=== PATIENT | female | born 1995 ===

== ENCOUNTER 2022-02-09 14:45 | Outpatient (CLI) | payer MEDICAID, SELFPAY | END 2022-02-09 14:46 | disposition home or self-care (01) | LOC: NFLDREF 02-10 09:49 | PROVIDERS: Visit Provider Obstetrics & Gynecology | DX: Z34.93 Encounter for supervision of normal pregnancy, unspecified, third trimester (principal); Z3A.30 30 weeks gestation of pregnancy | CPT/HCPCS: 87086 ==

== ENCOUNTER 2022-02-19 18:29 | Outpatient (CLI) | payer MEDICAID, SELFPAY ==
[2022-02-20 18:37] LABS: Rapid Plasma Reagin (RPR) Non Reactive (Non Reactive)
== END 2022-02-19 18:30 | disposition home or self-care (01) ==
PROVIDERS: Visit Provider Obstetrics & Gynecology
DX: Z34.93 Encounter for supervision of normal pregnancy, unspecified, third trimester (principal); Z3A.30 30 weeks gestation of pregnancy
CPT/HCPCS: 86592

== ENCOUNTER 2022-03-18 13:30 | Outpatient (CLI) | payer MEDICAID, SELFPAY ==
[2022-03-18 19:45] LABS: Chlamydia DNA Amplified* NOT DETECTED (No Detected); GC DNA Amplified* NOT DETECTED (No Detected)
== END 2022-03-18 13:31 | disposition home or self-care (01) ==
PROVIDERS: Visit Provider Obstetrics & Gynecology
DX: N39.0 Urinary tract infection, site not specified (principal); R30.0 Dysuria
CPT/HCPCS: 87086; 87491; 87591

== ENCOUNTER 2022-03-29 16:07 | Outpatient (CLI) | payer MEDICAID, SELFPAY ==
[2022-03-29 15:46] VITALS: BP 103/73; PULSE 116; RESP 20; TEMP 36.8; O2SAT 97; BMI 46.1
[2022-03-29 16:16] VITALS: PULSE 132; O2SAT 97
[2022-03-29 16:21] VITALS: PULSE 119; O2SAT 97
[2022-03-29 16:29] VITALS: BP 114/61; PULSE 111; TEMP 37.2
--- NOTE | 2022-03-29 18:07 | PC.OBNST ---
NST Note NST Note Start: 03/29/22 16:10 Freq: ONCE Status: Active Protocol: Document 03/29/22 18:05 AM (Rec: 03/29/22 18:06 AM [id number]) NST Note 3 Para (# of births) 1 EDC 04/26/22 Gestational Age In Weeks & Days 36 Weeks & 0 Days Patient Presented with Complaint(s) of Decreased movement Reactive Yes Appropriate for Gestational Age Yes RN Monika RNC Date 03/29/22 Reactive Yes Appropriate for Gestational Age Yes ROYAL Guevara Date 03/29/22 OB NST charge Yes Complete NST Note via Write Note Yes The provider's electronic signature indicates the NST is reactive/appropriate for gestational age. *Note to provider: If an addendum is required, open the patient's chart and click on the note under the Nurse/Allied Health tab.
== END 2022-03-29 17:20 | disposition home or self-care (01) ==
LOC: OB OUT 16:08 → OB 16:11
DX: O99.213 Obesity complicating pregnancy, third trimester (principal); Z3A.37 37 weeks gestation of pregnancy
CPT/HCPCS: 59025; 99213

== ENCOUNTER 2022-04-02 13:50 | Outpatient (CLI) | payer MEDICAID, SELFPAY ==
--- NOTE | 2022-04-02 14:00 | CRLHL7_ITS ---
For Patients: As a result of the Century Cures Act, medical imaging exams and procedure reports are released immediately into your electronic medical record. You may view this report before your referring provider. If you have questions, please contact your health care provider. INDICATION: OBESITY AFFECTING TECHNIQUE: Real time arroyo scale imaging of the fetus was performed. COMPARISON: None FINDINGS: Sonographic imaging demonstrates a single living intrauterine gestation. Fetus demonstrates a regular cardiac rate of 128 beats per minute. Fetus has a vertex position. The placenta lies posteriorly. Amniotic fluid volume appears normal and there is a single deepest pocket of 5.3 cm. The estimated weight is 3800gm which lies at the greater than 97th %. BPD 61st percentile. HC 55th percentile. AC greater than 97th percentile. FL 17th percentile. HC/AC ratio 0.88 (0.90-1.05). The fetus was active and demonstrated normal breathing movements. There was normal flexion and extension of the trunk and extremities. IMPRESSION: Normal biophysical profile score 8/8. Sonographic gestational age 37 weeks 6 days and sonographic due date 04/17/2022. Sonographic age 9 days ahead of the clinical age. Estimated weight greater than 97th percentile. Abdominal circumference greater than 97th percentile. Dictated by Jordan Mcfadden MD @ 04/02/2022 3:38:10 PM (Electronically Signed)
== END 2022-04-02 13:51 | disposition home or self-care (01) ==
LOC: US 13:51
PROVIDERS: Visit Provider Obstetrics & Gynecology
DX: O99.213 Obesity complicating pregnancy, third trimester (principal); Z68.41 Body mass index [BMI] 40.0-44.9, adult; Z3A.37 37 weeks gestation of pregnancy
CPT/HCPCS: 76816; 76819

== ENCOUNTER 2022-04-02 16:01 | Outpatient (CLI) | payer MEDICAID, SELFPAY ==
[2022-04-03 14:27] LABS: Strep B DNA Probe POSITIVE (Negative)
[2022-04-03 14:28] LABS: Strep B Pen/Amox Allergy No
== END 2022-04-02 16:02 | disposition home or self-care (01) ==
PROVIDERS: Visit Provider Obstetrics & Gynecology
DX: Z34.93 Encounter for supervision of normal pregnancy, unspecified, third trimester (principal); Z3A.36 36 weeks gestation of pregnancy
CPT/HCPCS: 87081; 87653

== ENCOUNTER 2022-04-18 05:14 | Inpatient (IN) | payer MEDICAID, SELFPAY ==
[2022-04-18] VITALS (22 sets, daily range): BP systolic 90–124; BP diastolic 51–77; PULSE 67–102; RESP 15–18; TEMP 36.6–38.2; O2SAT 96–100; BMI 47.3
[2022-04-18 05:48] LABS: Basophils Absolute Auto 0.03 K/uL (0.00-0.30); Basophils Percent Auto 0.4 % (0.0-3.0); Eosinophils Absolute Auto 0.09 K/uL (0.00-0.50); Eosinophils Percent Auto 1.1 % (0.0-7.0); Hematocrit 34.2 % (33.0-51.0); Hemoglobin* 11.2 gm/dL (12.0-16.0); Immature Granulocytes Abs Auto 0.12 K/uL (0.00-0.30); Immature Granulocytes Pct Auto 1.5 %; Lymphocytes Absolute Auto 1.96 K/uL (0.90-2.90); Lymphocytes Percent Auto 24.9 % (20-44); Mean Corpuscular HGB Conc 33 gm/dL (32-36); Mean Corpuscular Hemoglobin 27 pg (26-34); Mean Corpuscular Volume 82 fL (80-100); Neutrophils Absolute Auto 5.12 K/uL (1.7-7.0); Neutrophils Percent Auto 65.1 % (42.0-72.0); Platelet Count* 312 K/uL (140-440); RDW Coefficient of Variation % 16.2 % (11.5-15.5); Red Blood Count 4.19 m/uL (4.00-5.20); White Blood Count* 7.87 K/uL (4.50-11.00)
[2022-04-18 05:54] LABS: Slide Review Reflex No
[2022-04-18] MEDS: LACTATED RINGERS 1000 ML 1,000 ML 125 ML IV ×2 (06:15→18:52)
[2022-04-18] MEDS: AMPICILLIN 2 GM in 0.9 % SODIUM CHLORIDE Mini-bag 100 ML IVPB (06:15)
[2022-04-18 07:02] LABS: SARS PCR* Negative SARS-CoV-2 (Negative)
--- NOTE | 2022-04-18 10:31 | P.OBHP_ITS ---
OB - H&P: HPI Labor/Induction History of Present Illness Time Seen by Provider: 10:31 Date Seen: 04/18/22 Chief Complaint: Spontaneous rupture of membranes and contractions. Chief complaint: Maternity Narrative: HPI: Sabine is a 26-year-old 3 para 1011 at 38 weeks 6 days gestation with an RODERICK of 04/26/22. She is being admitted for SROM and spontaneous onset of labor. She was seen in the clinic earlier this afternoon and her cervix was found to be 6-7 cm dilated. Her membranes were intact. GBS negative. Her complete history and physical was completed by Dr. Sandra Pollard on 04/07/22 please see that note for complete details. OB PROBLEM LIST: . RODERICK: 04/26/22 by 1st trimester US Partner (since 2013): Jordan. Daughter: Becca. Baby: Boy! 1. 08/10/2020 primary LTCS for arrest of dilation, Dr. Cortes. Girl. 11#1oz * Double-layer uterine closure * Patient desires TOLAC * Consent form reviewed and given to the patient on 02/01/2022 * Likelihood of successful : 29.6% * US for EFW and BPP at 36 weeks: * IOL w oxytocin at 39 weeks * WANTS REPEAT CS SCHEDULED ON 04/19/22: Changed her mind on 04/18/2022 when she was admitted. * TOLAC consent form reviewed and signed with Bryanna Caballero MD on 04/18/2022 2. H/O PCOS 3. Initial BMI 42.4 * Hgb A1C: 5.2% * 1hr GTT 02/01/22:Completed, normal * Start weekly testing at 36 weeks: 4. Mild persistent asthma: albuterol MDI prn 5. H/O depression, no medication currently * 02/01/22: PHQ-9: 4. SALAS -7: 0 Transfer of care from [facility] on 02/01/22 labs: 09/04/21 Blood type O+, antibody screen negative HgbA1C: 5.2% Hemoglobin: 12.4 Platelets: 433 K Hepatitis C antibody: Negative Hepatitis B surface antigen: Negative HIV: Nonreactive RPR: Nonreactive Urine culture: Mixed Gram-positive tru Pap smear: Normal. Next due 2024 Imaging: US for FAS 11/30/21: SLIUP, post low lying placenta 1cm from os. Single echogenic focus in the heart. EFW 97%. Left anechoic adnexal cyst: 6.4 x 5.1 x 4.0 cm. 12/07/2021 maternity 21: No increased risk for chromosome abnormality. Male sex. F/U USN for growth and placental location 12/31/21: Post placenta > 2cm from the os. SDP = 5.9cm. EFW: 791gm = 97%. COVID: not vaccinated, declines. Flu: not vaccinated, declines TDap: 02/19/22 OBJECTIVE: Vital signs per medical record. Heart: Regular rate and rhythm without gallop, rub or murmur. Chest: Clear to auscultation bilaterally without wheezes, rales or rhonchi. Abdomen: Gravid and nontender. Normal bowel sounds throughout. EFM: Baseline 140's, (positive) accels, (negative) decels, moderate variability. Reactive Category 1. TOCO: Q 2 minutes. SVE per nursing on admission: 2.5 cm/50 %/-2/soft/mid. [place] score: 6 Extremities: No pain, edema or cyanosis. ASSESSMENT: 26-year-old 3 para 1001 at 38 weeks 6 days gestation admitted for TOLAC, status post spontaneous rupture of membranes and spontaneous onset of labor. PLAN: 1. The patient desires nothing for analgesia in labor. 2. GBS positive: Receiving ampicillin for prophylaxis. 3. Expect vaginal delivery. 4. TOLAC consent form reviewed and signed. Meds Home Medications and Allergies Home Medications Medication Instructions Recorded Confirmed Type calcium carbonate 200 mg calcium 200 mg PO BID PRN 02/01/22 04/14/22 History (500 mg) chewable tablet (Tums) prenat.vits,steve,dun-pogj-rpwjn 1 tab PO QDAY 02/01/22 04/14/22 History evening primrose oil 500 mg capsule 500 mg PO DAILY 03/29/22 04/14/22 History Allergies Allergy/AdvReac Type Severity Reaction Status Date / Time No Known Allergies Allergy Verified 04/14/22 13:47 OB - H&P: Exam Physical Exam: Vital signs: Pulse BP 77 119/59 L 04/18/22 09:27 04/18/22 09:27 OB - Results Labs Labs: Short CBC 04/18/22 Range/Units 05:42 WBC 7.87 (4.50-11.00) K/uL Hgb 11.2 L (12.0-16.0) gm/dL Hct 34.2 (33.0-51.0) % Plt Count 312 (140-440) K/uL
[2022-04-18] MEDS: AMPICILLIN 1 GM in 0.9 % SODIUM CHLORIDE Mini-bag 100 ML IVPB ×2 (10:57→15:15)
--- NOTE | 2022-04-18 11:56 | PM.OBPNL ---
Subjective Time Seen by Provider: 11:56 Date Seen: 04/18/22 Narrative: The patient is very painful with contractions describing her pain 12/16. No Pitocin. She has gotten 1 dose of IV ampicillin for GBS prophylaxis. I reviewed the TOLAC consent form with her and her partner, Jordan, she had her questions answered and the consent form signed. Risks associated with /TOLAC are due to uterine rupture = the scar on the uterus breaking oper. Chance of uterine rupture 0.07%. If uterine rupture occurs: 50% of women require blood products due to internal bleeding, 25% require hysterectomy to control hemorrhaging, 3-4% of neonates have long-term neurologic problems (cerebral palsy) placental abruption at the time of uterine rupture resulting in lack of oxygenation, less than 1% or maternal mortality. Vital signs: Per electronic medical record. EFM: Baseline 130s, multiple accelerations, no decelerations, moderate variability, reactive. Category 1. [place]: Contractions every 1-5 minutes. SVE: 6 cm/80 %/-1. Assessment: 26-year-old 2 para 1 at 38 weeks 6 days gestation TOLAC. Plan: 1. Continue ampicillin every 4 hours for GBS prophylaxis 2. Wants to labor without medical intervention. 3. Operating room staff will be notified that the patient is in active labor. Objective Vital Signs: Last Vital Signs Temp 98.2 F 04/18/22 10:30 Pulse 77 04/18/22 09:27 Resp 16 04/18/22 10:30 BP 119/59 L 04/18/22 09:27
--- NOTE | 2022-04-18 15:31 | P.OBPN_ITS ---
Subjective Time Seen by Provider: 15:00 Date Seen: 04/18/22 Narrative: Subjective: The patient is mildly uncomfortable with contractions. States that the contractions are much less painful than they were prior to getting fentanyl. Discussed placing an IUPC and scalp electrode to see how strong the contractions are and closely monitor the baby's heart rate. She gave verbal consent to have these placed. Vital signs: Per electronic medical record. EFM: Baseline 130s, positive accelerations, negative decelerations, moderate variability, reactive. Category 1. scalp electrode placed without difficulty. [place]: Contractions every 5-10 minutes. IUPC placed. [place] units <50/10min for > 30 minutes. SVE: 6 cm/80 %/-1. Unchanged since noon. Assessment: 26-year-old 2 para 1 at 38 weeks 6 days gestation, inadequate labor. Plan: 1. Start Pitocin per induction protocol. 2. Status post ampicillin: 2 doses for GBS positive status. Objective Vital Signs: Last Vital Signs Temp 98.6 F 04/18/22 13:49 Pulse 80 04/18/22 15:19 Resp 18 04/18/22 13:49 BP 119/59 L 04/18/22 15:19
[2022-04-18] MEDS: OXYTOCIN 30 unit/500 ML in NS 30 UNIT/500 ML BAG IVPB (15:37)
--- NOTE | 2022-04-18 18:35 | P.OBPN_ITS ---
Subjective Time Seen by Provider: 18:15 Date Seen: 04/18/22 Narrative: Subjective: Uncomfortable with contractions requesting an epidural. Discussed that if she has not needed any progress which she want to hold off on epidural and do her repeat or get an epidural in continue to try to do Pitocin to progress to a . She states that she would like to go to repeat if she has not made any progress.. Pitocin: 7 milliunits/minute. Vital signs: Per electronic medical record. EFM: Baseline 130, pots accelerations, no decelerations, mA variability, react. Category 1. IUPC: Contractions every 3-6 minutes. [place] units: 28-35/10min SVE: 6 cm/8 %/-1. No change in dilation or progress in station since noon today: Greater than 6 hours. Assessment: 26-year-old 2 para 1 at 38 weeks 6 days gestation arrest of dilation, unsuccessful augmentation of labor Plan: 1. Pitocin stopped. 2. Consent form for repeat low-transverse section reviewed and signed. 3. Planning to proceed to repeat when the operating room is able. Objective Vital Signs: Last Vital Signs Temp 98.5 F 04/18/22 16:50 Pulse 90 04/18/22 16:50 Resp 18 04/18/22 13:49 BP 119/57 L 04/18/22 16:50
--- NOTE | 2022-04-18 18:38 | PM.PROC ---
Procedure Note Time Seen by Provider: 18:39 Date Seen: 04/18/22 Date of procedure: 04/18/22 Will [facility] bill your pro fee for this procedure?: Yes Procedure: Preoperative diagnosis: 26-year-old 2 para 1001 at 38 and 6/7 weeks. Spontaneous rupture membranes at 3:00 a.m. today status post 3 doses of IV ampicillin for GBS prophylaxis. Arrest of dilation/unsuccessful augmentation of labor with dilation arrested at 6 cm. Postoperative diagnosis: Same Procedure: Repeat low-transverse section/CED/left ovarian cystectomy. Anesthesia: Spinal, TAPS block Surgeon: Bryanna Caballero MD Manager Multimedia: Not applicable Quantitative blood loss: 893 mL IVF: 1300 mL UOP: 100 mL clear urine at the end of the procedure Drain(s): [place] to gravity. Specimen: Left ovarian cyst wall Findings: A live male infant was delivered from the LOT position at 7:52 p.m.. Apgars were 8 at 1 min and 9 at 5 min respectively. Infant weight: 4895 g, 10 lb 13 oz. Nuchal cord(s): No. The placenta was delivered spontaneously and complete at 7:55 p.m. Amniotic fluid: Clear. Normal uterus, and fallopian tubes. Thick adhesions of the omentum to the fascia and peritoneum that were lysed on entry into the abdomen. 5 cm left ovarian cyst. Thin adhesions of the left adnexa to the left pelvic sidewall. Procedure: Mirelia was taken to the OR where spinal anesthetic was found be adequate. A [place]thing[place] catheter was placed. The patient was then placed in the dorsal supine position with a leftward tilt. She was then prepped and draped in a normal sterile manner. A Pfannenstiel skin incision was made and carried through sharply to the underlying layer of fascia. Fascia was incised in the midline and this incision carried laterally with Grady scissors. The superior aspect of fascial incision was grasped with Kady clamps, tented up, and the rectus muscles dissected off with bipolar cautery dissection.. The inferior aspect of the fascial incision was grasped with Kady clamps, tented up and again the rectus muscles dissected off with bipolar cautery dissection. The rectus muscles were in the midline, layers taken down sharply with the Grady scissors. There were thick adhesions of the omentum to the fascia. Multiple pedicles were formed in the omentum, doubly clamped with Irais clamps, divided and suture ligated with 3-0 Vicryl free ties. The peritoneum was entered bluntly and this opening extended with a combination of sharp and blunt dissection. This opening was extended bluntly. An Yuval-O self-retaining retractor was placed. A few adhesions of the bladder today anterior lower uterine segment were removed but a bladder flap was not created. Uterus was incised in a low transverse manner in the midline. This incision carried laterally with blunt pressure on the inferior and superior aspects of the uterine incision. The infant's head and body were delivered atraumatically. The infant was shown to the patient and her support person. The umbilical was clamped and cut immediately/after a 30-60 second delay. The was then handed to waiting pediatric and nursing staff. The placenta was delivered spontaneously. The uterus was cleared of clots and debris. There was uterine atony noted which was treated with multiple medications: 1 g IV TXA, 30 units Pitocin in 1 L lactated Ringer's wide open, Methergine 0.2 mg IM x1, Cytotec 800 mg rectally. The uterine incision was re-approximated with the uterus in vivo. The 1st layer using 0-Vicryl in a running, locked manner. The 2nd layer using 0-Monocryl in a running, vertical, imbricating layer. Additional sutures needed for hemostasis: Yes: 4 figure of 8 sutures using 2-0 chromic. The ovaries were then inspected and the left ovarian cyst was identified. The patient gave verbal consent to have the ovarian cyst removed. Some of the thin adhesions of the left adnexa to the left pelvic sidewall were taken down bluntly. The ovary was incised at the inferior aspect of the cyst using bipolar cautery. The normal ovarian tissue was grasped with a Irais clamp and ovarian cyst wall was grasped with a 2nd Irais clamp. The ovarian cyst wall was removed from the overlying normal ovarian tissue with blunt pressure. Bipolar cautery was used to obtain hemostasis. Attention was return to the uterine incision and Saniya was applied. Excellent hemostasis was confirmed. The Yuval retractor was removed. The rectus muscles were not reapproximated. The peritoneum was reapproximated using 3 0 Vicryl in a running manner. The rectus muscles were then closely inspected to verify hemostasis. Hemostasis was obtained with bipolar cautery. The fascia was then reapproximated using 0-Maxon loop in a running manner. The subcutaneous tissue was then irrigated with saline and hemostasis obtained with bipolar cautery. The subcutaneous tissue was reapproximated using 3-0 plain gut in a combination of interrupted and running sutures. The skin was reapproximated using 4-0 Monocryl in a running subcuticular manner. Steri-Strips and a silver-containing methaplex dressing were applied. The patient tolerated this procedure well. Sponge, lap and instrument counts were correct x2 active to the procedure. Patient was taken to the recovery area in stable condition. The patient received 3 g of IV Ancef prior to skin incision. After delivery she received: 1 g IV TXA, 30 units Pitocin in 1 L lactated Ringer's wide open, Methergine 0.2 mg IM x1, Cytotec 800 mg rectally. Surgeon: Bryanna Caballero MD
[2022-04-18] MEDS: CEFAZOLIN 1 GM inj 3 GM IVP (19:15)
--- NOTE | 2022-04-18 19:54 | SUR.OPER ---
SURGEON DECLINED TO SEND PLACENTA TO PATHOLOGY
[2022-04-18] MEDS: miSOPROStoL 800 MCG/4 TABLET PR (19:57)
--- NOTE | 2022-04-18 22:00 | W.ANESCHARGE ---
Anesthesia Charges Start Date/Time Anesthesia Start Date: 04/18/22 Anesthesia Start Time: 19:08 Stop Date/Time Anesthesia Stop Date: 04/18/22 Anesthesia Stop Time: 21:39 Summary Emergency: Yes
--- NOTE | 2022-04-18 22:01 | W.PM.NB ---
Nerve Block Nerve Block Time Seen by Provider: 22:01 Date Seen: 04/18/22 Type of block requested by surgeon for post-operative analgesia: TAP Side: bilateral Time out performed: Yes Verification of patient name: Yes Verification of date of : Yes Site marking: site marked Name of person performing procedure: Moreno Johny Continuous monitoring Was continuous monitoring of O2 sat, B/P, laboratory monitor, recorded every 15 minutes?: Yes Procedure Checklist: sterile prep, needles and gloves Ultrasound guided. Images saved: Yes Medications given in 5ml increments after negative aspiration: Marcaine %: 0.25 mL: 30 and Exparel mL: 10 Patient tolerated procedure well: Yes Block Charges Block Charge (with Pro Fee): TAP Bilateral Use of Ultrasound Machine for Block: Yes- US Guidance/pain block
[2022-04-19] VITALS (24 sets, daily range): BP systolic 104–123; BP diastolic 53–72; PULSE 68–83; RESP 16–18; TEMP 36.8–37.7; O2SAT 95–100
[2022-04-19] MEDS: KETOROLAC 30 MG/ML inj IVP ×4 (03:13→21:02)
[2022-04-19 06:32] LABS: Hemoglobin* 9.5 gm/dL (12.0-16.0)
--- NOTE | 2022-04-19 08:29 | P.OBPN_ITS ---
OB - PN: A/P Assessment and Plan (1) Lactating mother: Status: Acute (2) Status post repeat low transverse section: Problem details: Arrest of dilation, LOT, Male, 10#13oz. Apgars 8/9. Status: Acute Plan 26 year old on day 1.? 1. cares.? 2. Anticipate discharge today or tomorrow. Plan day: 1 Plan: routine postop care OB - PN: Subj Subjective Date Seen: 04/19/22 Patient comments: no complaints, pain well controlled and tolerating diet status: and doing well [place] feeding status: exclusively Narrative: The patient feels well.? The pain is well controlled with current medications.? She has no new complaints.? Urinary output is adequate and she is voiding without difficulty.? Has a good appetite, is tolerating a general diet, and is not yet passing flatus.? Has?small amount of rubra lochia.? She has ambulated once and felt that it went well.?She would like to discharge today after 24 hours if possible. She is anxious to get home to her young child whom she is still . I will round on her again this evening and evaluate for discharge. OB - PN: Obj Exam Physical Exam: Vital signs: Temp Pulse Resp BP Pulse Ox O2 Del Method 99.8 F H 83 16 106/71 96 04/19/22 03:23 04/19/22 03:23 04/19/22 05:15 04/19/22 03:23 04/19/22 03:23 04/19/22 03:23 Narrative: GENERAL APPEARANCE:? normal affect, alert, no distress? MOOD:? appropriate? CHEST:? clear to auscultation and percussion? HEART:? regular rate and rhythm? ABDOMEN:? soft, tender to palpation, the uterine fundus is?U/2 and is appropriate for the stage of recovery.?Incision covered and dressing is clean dry and intact. PERINEUM:? no edema of the perineum.? EXTREMITIES:? normal and no edema? ? Urinary Catheter Management: Urethral: Cath placed during this visit: yes, but has since been removed by the nurse Reason for continuing: decision to DC catheter Removal date: 04/19/22 Removal time: 03:45 OB - PN: Obj Data Labs Labs: Laboratory Results - last 24 hr 04/19/22 05:55 Hgb 9.5 L
[2022-04-19] MEDS: FERROUS SULFATE 325 MG TABLET PO (08:55)
[2022-04-19] MEDS: DOCUSATE SODIUM 100 MG CAPSULE PO (08:55)
--- NOTE | 2022-04-19 12:29 | PM.OBPNL ---
Subjective Time Seen by Provider: 11:00 Date Seen: 04/19/22 Narrative: I went to examine the patient and to possibly place her second dose of cytotec. Patient is very anxious about the induction plan. She states that she doesn't feel comfortable with the risk of Objective Vital Signs: Last Vital Signs Temp 98.2 F 04/19/22 08:45 Pulse 81 04/19/22 08:45 Resp 18 04/19/22 08:45 BP 123/70 04/19/22 08:45 Pulse Ox 95 04/19/22 08:45 O2 Del Method 04/19/22 08:45 Assessment Amniotic Membrane Status: SROM
[2022-04-20 00:44] VITALS: BP 103/70; PULSE 76; RESP 16; TEMP 36.6; O2SAT 97
[2022-04-20] MEDS: ACETAMINOPHEN 500 MG TABLET 1000 MG PO ×2 (00:53→11:11)
[2022-04-20] MEDS: KETOROLAC 30 MG/ML inj IVP (02:58)
--- NOTE | 2022-04-20 08:32 | PM.OBDSCS1 ---
DS: Providers Provider Time Seen by Provider: 08:33 Date Seen: 04/20/22 Date of admission: 04/18/22 05:14 Primary care physician: Penny Maurer MD Admitting Clinician: Bryanna Caballero MD Attending Physician on discharge: Lou Kim CNM Date of Discharge: 04/20/22 DS: Diagnosis Discharge Diagnosis (1) Status post repeat low transverse section: Status: Acute Problem details: Arrest of dilation, LOT, Male, 10#13oz. Apgars 8/9. (2) Lactating mother: Status: Acute (3) Acute anemia: Status: Acute Exam Const: Vital Signs, click to edit/add: Vital Signs - 24 hr 04/19/22 08:45 04/19/22 13:00 04/19/22 12:08 Temperature 98.2 F 98.6 F Pulse Rate [Pulse Oximeter] 81 83 Respiratory Rate 18 16 16 Blood Pressure [Le ft Arm] 123/70 105/70 Pulse Oximetry 95 96 Oxygen Delivery Me thod Room Air Room Air 04/19/22 13:08 04/19/22 14:08 04/19/22 15:08 Temperature Pulse Rate [Pulse Oximeter] Respiratory Rate 16 16 16 Blood Pressure [Le ft Arm] Pulse Oximetry Oxygen Delivery Me thod 04/19/22 16:08 04/19/22 17:08 04/19/22 18:04 Temperature Pulse Rate [Pulse Oximeter] Respiratory Rate 16 16 16 Blood Pressure [Le ft Arm] Pulse Oximetry Oxygen Delivery Me thod 04/19/22 16:00 04/20/22 00:44 04/19/22 19:30 Temperature 98.2 F 97.9 F Pulse Rate [Pulse Oximeter] 76 Respiratory Rate 16 16 16 Blood Pressure [Le ft Arm] 123/72 103/70 Pulse Oximetry 95 97 Oxygen Delivery Me thod Room Air Room Air 04/19/22 20:30 04/19/22 21:30 Temperature Pulse Rate [Pulse Oximeter] Respiratory Rate 16 16 Blood Pressure [Le ft Arm] Pulse Oximetry Oxygen Delivery Me thod Documenting provider has reviewed patient's vital signs: yes Common normals: no apparent distress, oriented x3, healthy appearing, alert and well nourished General appearance: cooperative, well kempt and well developed Orientation/consciousness: Yes awake, Yes oriented to person, Yes oriented to place and Yes oriented to time HENMT: Common normals: normocephalic and external nose normal Head and scalp: normocephalic Nose: external nose normal Eye: General eye: normal appearance of both eyes Neck & C-Spine: Common normals: full ROM and supple General: normal visual inspection Cervical spine: cervical ROM normal Chest: Common normals: inspection of chest normal and palpation of chest normal Resp: Common normals: normal respiratory effort, no retractions, no use of accessory muscles and clear to auscultation bilaterally Effort & inspection: able to speak in complete sentences and symmetric chest movement Auscultation: clear to auscultation bilaterally Cardio: Common normals: regular rate and regular rhythm Rate: regular rate Rhythm: regular rhythm GI: Common normals: Normal to inspection, nondistended, normoactive bowel sounds present and soft to palpation Inspection: normal to inspection and other (Incision well approximated, no bleeding or discharge. Dressing [dry]) Auscultation: normoactive bowel sounds Palpation: soft and tender : Common normals: external appearance normal Uterus: 2/U and firm Lochia: small Uterus palpation: uterus tender Back & Pelvis: Thoracic spine/upper back: thoracic ROM normal Lumbar spine/lower back: lumbar ROM normal Extremity: Common normals: full ROM General: normal exam except as noted and edema ([place], +1) Neuro: Common normals: oriented x3 Sensorium/orientation: awake, alert, oriented to person, oriented to place and oriented to time Speech: speech normal Psych: Common normals: mental status grossly normal, thought process normal and speech normal Appearance: grossly normal and well kempt Attitude: calm and engaged Activity/motor behavior: appropriate eye contact Speech: normal speech Thought process: normal thought process Thought content: normal thought content Attention/concentration: attention grossly intact Memory/cognition: memory grossly intact Insight: insight good Judgement: judgment good Skin: Common normals: no rashes or lesions noted Narrative: LTC Incision: Dressed, dry, no drainage or bleeding General skin exam: no rashes or lesions noted OB - DS: Summary Hospital Course Hospital Course: Sabine is a 26 year old G 3 P 2 at 39 2/7 weeks gestation that was admitted to the Center on 04/18/22 for SROM. She had an uncomplicated delivery after areest of dilation with an attempted TOLAC. She delivered a viable male . She is breast feeding. the patient has done well. Peripartum Data Procedures: Procedures Operation Date: 04/18/22 19:15 Actual Procedure Side Surgeon p Section, left ovarian cystectomy, lysis of adhesions Bryanna Caballero MD complications: none [place] Gender: Male Infant Discharge Plan: Home Status at Discharge Functional status at discharge: independent ambulation Overall status at discharge: patient is progressing back to baseline Time Spent with Patient Time attestation: Total time spent providing and/or coordinating discharge services: Time spent: Less than 30 minutes Discharge Plan Discharge Disposition: Home, Self-Care Date of Admission: 04/18/22 05:14 Attending Provider on Discharge: Yuliya Kim Primary Care Provider: Penny Maurer Condition: Stable Anticipated Discharge Date/Time: 04/20/22 08:42 Discharge Medications: New docusate sodium 100 mg Capsule 100 mg PO BID PRN (Reason: constipation) Qty: 100 1RF ibuprofen 600 mg Tablet 600 mg PO Q6H PRN (Reason: Pain) Qty: 60 0RF oxycodone 5 mg Tablet 5 - 10 mg PO Q4H PRN (Reason: Pain) Qty: 20 0RF Continued prenat.vits,steve,[id number] Tablet 1 tab PO QDAY calcium carbonate [Tums] 200 mg calcium (500 mg) tablet,chewable 200 mg PO BID PRN ferrous sulfate 325 mg (65 mg iron) tablet 325 mg PO QDAY Qty: 60 0RF Discontinued evening primrose oil 500 mg capsule 500 mg PO DAILY Rx Instructions: give with meal/snack Discharge Orders: Discharge Order (Routine); Ordered 04/20/22 Ordered By: Yuliya Kim Patient Education: OB Over the Counter Medication Information, OB /Breast Feeding Additional Instructions: Follow up in 2 weeks & 6 weeks Activity Level: Activity as Tolerated Discharge Diet: Regular Follow Up Appointments: Penny Maurer MD [Primary Care Provider] - Forms: [employer] Info Instructions
[2022-04-20 08:45] VITALS: BP 102/71; PULSE 74; RESP 16; TEMP 36.6; O2SAT 97
== END 2022-04-20 12:45 | disposition home or self-care (01) | DRG 787 ==
LOC: OB OUT 05:14 → OB 05:14
PROVIDERS: Admitting Provider Obstetrics & Gynecology; PCP Obstetrics & Gynecology; Visit Provider Obstetrics & Gynecology
PROC: 10D00Z1 Extraction of Products of Conception, Low, Open Approach (ICD-10-PCS; CPT 59514; principal; 2022-04-18 19:00)
DX: O34.211 Maternal care for low transverse scar from previous cesarean delivery (principal); D62 Acute posthemorrhagic anemia; O66.41 Failed attempted vaginal birth after previous cesarean delivery; O99.824 Streptococcus B carrier state complicating childbirth; O62.0 Primary inadequate contractions; O34.83 Maternal care for other abnormalities of pelvic organs, third trimester; N83.292 Other ovarian cyst, left side; O90.81 Anemia of the puerperium; Z3A.38 38 weeks gestation of pregnancy; Z37.0 Single live birth
CPT/HCPCS: 01961; 36415; 51798; 64488; 76942; 85018; 85025; 86850; 86900; 86901; 87635; 88307; 99140; A9270; C9290; J0290; J0690; J1100; J1200; J1885; J2210; J2274; J2370; J2405; J2590; J3010; J3490; J7120

== ENCOUNTER 2022-07-05 14:06 | Outpatient (CLI) | payer MEDICAID, SELFPAY | END 2022-07-05 14:07 | disposition home or self-care (01) | LOC: NFLDREF 14:09 | PROVIDERS: Visit Provider Advanced Practice Midwife | DX: Z39.2 Encounter for routine postpartum follow-up (principal) | CPT/HCPCS: 84702 ==

== ENCOUNTER 2022-11-30 15:05 | Outpatient (CLI) | payer MEDICAID, SELFPAY ==
[2022-11-30 20:18] LABS: Chlamydia DNA Amplified* NOT DETECTED (No Detected); GC DNA Amplified* NOT DETECTED (No Detected)
== END 2022-11-30 15:06 | disposition home or self-care (01) ==
PROVIDERS: Visit Provider Obstetrics & Gynecology
DX: R10.2 Pelvic and perineal pain (principal)
CPT/HCPCS: 87086; 87491; 87591

== ENCOUNTER 2022-11-30 15:08 | Outpatient (CLI) | payer MEDICAID, SELFPAY ==
--- NOTE | 2022-11-30 15:00 | CRLHL7_ITS ---
For Patients: As a result of the Century Cures Act, medical imaging exams and procedure reports are released immediately into your electronic medical record. You may view this report before your referring provider. If you have questions, please contact your health care provider. CLINICAL HISTORY: Left lower quadrant pain TECHNIQUE: 2D arroyo scale ultrasound. In addition color Doppler and spectral Doppler analysis was performed of the pelvis using a transabdominal and transvaginal approach. FINDINGS: The myometrium has a normal uniform echotexture. The uterus measures 8.4 x 3.8 x 4.6 cm. The endometrial lining appears normal and measures 4.6 mm in thickness. The right ovary measures 3.8 x 2.3 x 3.4 cm in size and the left ovary measures 3.8 x 1.9 x 2.4 cm. The ovaries demonstrate normal arterial and venous blood flow on color Doppler and spectral Doppler analysis. There are no suspicious fluid collections within the cul-de-sac. IMPRESSION: Normal pelvic ultrasound. Normal ovaries. No adnexal mass or excess pelvic free fluid. No ovarian torsion. Dictated by Jordan Mcfadden MD @ 12/01/2022 9:00:17 AM (Electronically Signed)
== END 2022-11-30 15:09 | disposition home or self-care (01) ==
LOC: US 15:09
PROVIDERS: Visit Provider Obstetrics & Gynecology
DX: R10.32 Left lower quadrant pain (principal)
CPT/HCPCS: 76830; 76856; 93976

== ENCOUNTER 2023-04-13 14:30 | Outpatient (RCR) | payer MEDICAID, SELFPAY ==
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
--- NOTE | 2023-04-13 15:51 | PT.OPDNX ---
PT [facility] Outpatient Daily Note PT [facility] Outpatient Daily Note Start: 01/19/23 14:35 Freq: Status: Active Protocol: Document 04/13/23 14:28 ARR (Rec: 04/13/23 15:47 ARR [email or web address]) E-signed By Myrna Bell DPT PT [facility] Daily Progress Note Visit Information Note Type Daily Note,Recert/Progress Note Visit Number [id number] Insurance Information Recert Due Date 07/12/23 Insurance Name Medicaid,[facility] Insurance Information/Comments Eval: 01/19 - 04/13 (8 visits) Recert 04/14-06/12/23 POC x 8 visits MEDICAID Medical Diagnosis R10.2 pelvic and perineal pain Treating Diagnosis R10.30 Lower abdominal pain, unspecified R10.2 Pelvic and perineal pain N39.3 Stress incontinence M54.16 lumbar radiculopathy Referring MD Penny Maurer MD ([facility]) Subjective Subjective -Nearly 20 min late -Back has been fine. Noting upper back pain likely from VB -Urinary leakage -notices it during the day and especially in the AM. After holding the kids, doing heavy lifting will leak. At times will also leak and not know she leaked. Occurs daily. Will have to change underwear daily - started wearing liners and must change liners 3+ times per day. -Daytime voiding every 2-3 hours. No urgency. Preferred Name [facility] Home Exercise Home Exercise Comments OTHER: -Diary -PF check in's handout 04/13 -Bladder health 01/26 -BM positioning 01/26 -CS massage 01/26 Access Code: [email or web address] URL: [email or web address] Date: 01/26/2023 Prepared by: Myrna Bell Exercises - Transverse Abdominis Activation - 1 x daily - 4-5 x weekly - 2 sets - 6-8 reps Objective Other/Pertinent Objective Transvaginal 04/13 -Good squeeze and lift of PFM with contraction. Reduced relaxation of PFM with rest. TTP throughout layers 1-3 with TTP and increased tone. INTERNAL EXAMINATION INTRAVAGINAL 01/26: -Sensation: intact to touch -Observation: WNL -Perineum: normal -Cough: nil -Lifting contraction: Anal wink minimal clitoral nod -Bulge: bulge Tenderness/pain to palpation/ tone: -Layer 1: ischiocavernosus / bulbospongiousus / superficial transverse perineal on left Strength ( R / C / L): -Power (MMT): 2 -Endurance: 6 -Reps:4 -Fast twitch: 8 -Relaxation of PFM after quick contractions: delayed *poor squeeze strength Other: -Breathing examination: dec?d posterior and lateral ribcage mvmt with inhalation EXTERNAL OBJECTIVE 01/19/23: -Movement screen: --MS flexion fingertips to floor with inc'd HS flexibility reduced TS and LS *increased leg/back pain. --LS extension hinging at L4-5 . No changes in LBP or back pain. --MS extension reduced TS. -SLS: significant foot pronation each side with instability and pelvic drop. able to hold 20-30 sec. L more unstable than R with inc'd foot pronation. -Posture: navicular drop with increased foot pronation bilaterally. IC on R elevated 1 thumbwidth. Inc'd APT -Hip PROM: IR 60 R / 40L. ER 70 R, 60 L. Flexion and ext WNL -Strength: glut medius 2+ bilat Other Tests: -Coordination: gripping with upper abs during attempts at TA activation -Breathing: dec?d posterior and lateral ribcage mvmt with inhalation -Myofascial palpation: Decreased connective tissue mobility with skin rolling at lower abdominal areas. Increased tissue sensitivity with TTP over tissue of scar -DR: <1/2 depth and 2 fingers at umbilicus and above umbilicus / <1/2 depth and 1 fingers above umbilicus Special tests: -Flexibility: + piriformis. Patient Instructed in Risks/Benefits Yes Therapeutic Exercise Therapeutic Exercise Minutes (minutes) 45 Therapeutic Exercise: To Restore TE: Indicated for improvement Functional Status in strengthening and mobility. -Handouts with written instructions and photographs of exercises were issued to the patient for exercises to be included in HEP. Answered patient questions regarding POC, and mobility/stretches to perform if pain occurs -Transvaginal assessment as above transvaginal with consent: -Deep breathing x 8 breaths -PFC with full relaxation x 8 reps -PFTA with exhale x 8 reps Education:: -PF letting go with check in's 4-5x/day - STOP clenching your pelvic floor and glut/buttock muscles . Shake it out and let the muscles go - After exercising do happy baby position or child?s pose and take 8-10 deep breaths - EXHALE lifting pelvic floor and engaging lower abdominals as you oyster picker something heavy / kids - Take 1-5 minutes DAILY for deep breathing and relaxing pelvic floor (before you go to bed or 1st thing in the AM when you get up). Treatment Minutes Timed Code Treatment Minutes 45 Total Treatment Time 45 Billing Units Therapeutic Exercise Units 3 Assessment/Impression Assessment/Impression Reassessment of PFM this date noting improved PFC with greater squeeze and lift compared to initial evaluation . But also noting increased TTP and tone - this is consistent with pt's subjective report of feeling as if she is clenching/ tightening PF more often due to fear of leaking in addition to pt's habit of glut clenching with increased stress. WIth attempts at TA activation note excessive PFC compared to TA activation. Pt' s increase in urinary leakage likely secondary to hypertonic PFM and clenching/holding patterns. Pt to also increase awareness of any bearing down with deep squats/holding kids vs lifting from bottom up. Pt' s next visit is May 2023 due to scheduling conflicts. Pt to contact PT sooner with any questions or concerns. Is on waitlist for cancellations 10th visit note: Pt has been seen for lower abdominal pain, lumbar radiculopathy, low back pain, pelvic pain s/p delivery for 8 visits from to 04/13/23 during this episode of physical therapy. Focus of therapy on spinal ROM /stretching, proximal strengthening of core and gluts, and body mechanics. Interventions including ther exercise, self-care, manual therapy, neuromuscular re- education. Pt has not yet met all short and joint terminal attack controller goals and would benefit from continued skilled physical therapy. Maximal therapeutic benefit has also not yet been reached as pt has had reduced back pain but persistent urinary leakage. Thus, PT to benefit from extension of current plan of care with timeframe of goals adjusted to allow for additional visits. Skilled PT is indicated to continue at a frequency of 1x/ wk for an additional 8 visits. Continued skilled PT to continue working on proximal strengthening of core/gluts, PFM strengthening, pressure mgmt to reduce instances of incontinence, and promoting improved bladder/bowel health. Pt agreeable with continued skilled therapy and goals. Plan of Care Physical Therapy Goals STG (within 4 visits - total of 8 visits) 1) Pt will demonstrate proper coordination of motor recruitment patterns for PF then TA activation during isometric activation while maintaining diaphragmatic breathing pattern 2)Pt will recall at least 4 strategies to improve pressure management in order to reduce instances of incontinence outside PT sessions 3) Pt will report reduced urinary leakage episodes no more than 2 per day for improved health of vaginal tissues LTG (within 8 visits - total of 16) 1) Pt will demonstrate proper coordination of motor recruitment patterns for PF then TA activation during dynamic UE/LE movements in all postures while maintaining diaphragmatic breathing pattern 2)Pt will demonstrate ability to complete at least 10 quick contractions of PFM with full relaxation between reps in order to reduce incontinence with increases in IAP 3) Pt will demonstrate improved PFM contraction of at least 3 on Laycock scale 4) Pt will report reduced urinary leakage episodes no more than 2x per week for improved health of vaginal tissues 5)Pt will report absent urinary leakage with cough, sneeze, jump. 6) Pt will report ability to return to exercise with pain not exceeding 2/10 for improved quality of life. Daily Plan of Care Comments DISCUSS URINARY LEAKAGE Discuss effectiveness of treatment strategies as above for reduced urinary leakage Recertification Information Initial Certification Date 01/19/23 Recertification Start Date 04/14/23 Recertification Due Date 07/12/23 Reasons to Continue Skilled Therapy Please see above assessment portion of note Rehabilitation Potential Please see above assessment portion of note Continued Plan of Care and Interventions Please see above assessment portion of note Provider Signature Shows Agreement With POC & Medical Necessity Physician Comment/Change Comment or Changes Physician NPI Number #
== END 2023-08-09 10:26 | disposition home or self-care (01) ==
PROVIDERS: Visit Provider Obstetrics & Gynecology
DX: R10.2 Pelvic and perineal pain (principal); R10.30 Lower abdominal pain, unspecified; N39.3 Stress incontinence (female) (male); M54.16 Radiculopathy, lumbar region; Z51.89 Encounter for other specified aftercare
CPT/HCPCS: 97110; 97112; 97140; 97162; 97535

== ENCOUNTER 2024-11-11 01:09 | Emergency (ER) | payer MEDICAID, SELFPAY ==
--- OUTSIDE RECORDS SUMMARY | 2024-11-11 01:11 | XMS_ITS | Clinical Summary ---
Author Organization [facility] Address [address] [place] [address] Care Team Providers Care Change Management Lead Name Role Phone Pcp, No Primary Care Provider Unavailabl e Pcp, No Unavailable Unavailable Allergies No known active allergies Medications PROAIR HFA 90 mcg/actuation inhaler 2 Puffs every 4 hours if needed. 2 06/01/2018 Active multivit-min/venkata hernando fumarate (MULTI VITAMIN ORAL) Take by mouth. Active Active Problems No known active problems Resolved Problems Problem Noted Date Diagnosed Date Resolved Date IUD (intrauterine device) in place 08/14/2014 07/15/2015 Overview (08/14/2014): larry 08/14/2014 Social History Tobacco Use Types Packs/Day Years Used Date Smoking Tobacco: Never Smokeless Tobacco: Never Tobacco Cessation:Counseling Given: No Alcohol Use Standard Drinks/Week Comments Yes 0 (1 standard drink = 0.6 oz pur e alcohol) rare Comments No Sex and Gender Information Value Date Recorded Sex Assigned at Not on file Legal Sex Female 4:20 PM CDT Gender Identity Not on file Sexual Orientation Not on file Obstetrics History Last Filed Vital Signs Vital Sign Reading Time Taken Comments Blood Pressure 113/73 11/05/2020 7:12 PM CDT Pulse 78 11/05/2020 7:12 PM CDT Temperature 36.8 C (98.2 F) 11/05/2020 7:12 PM CDT Respiratory Rate 16 11/05/2020 7:12 PM CDT Oxygen Saturation 98% 11/05/2020 7:12 PM CDT Inhaled Oxygen Concentration - - Weight 105.2 kg (232 lb) 11/05/2020 7:11 PM CDT Height 158 cm (5' 2.21) 02/14/2018 9:10 AM CDT Body Mass Index 42.15 02/14/2018 9:10 AM CDT Plan of Treatment Health Maintenance Due Date Last Done Comments (IA) Tdap 2006 Hepatitis C screening for ag e 18-79 2013 Hepatitis B series for 19+ ( 1 of 3 - 19+ 3-dose series) 2014 Tetanus booster 2015 Pap test for age 21-65 2016 Depression screening for age 12+ 07/14/2016 07/15/2015 BMI (ht and wt on same day) for age 18+ 02/14/2019 02/14/2018, 07/08/2015 COVID-19 vaccine series (2023- season) 2024 Influenza Vaccine (Season Ended) 2025 HIV for age 15-65 Completed 09/09/2014 Pneumococcal series for age 6-49 Aged Out No longer eligible b ased on patient's age to complete this topic Procedures Procedure Name Priority Date/Time Associated Diagnosis Comments ANTI HIV 1/2 Routine 09/09/2014 3:36 PM CDT Screening for STD (sexually transmitted disease) from Last 3 Months or Most Recently Relevant to Health Maintenance Results * ANTI HIV 1/2 (09/09/2014 3:36 PM CDT) HIV-1/HIV-2 ANTIBODY Non-Reacti ve Non-Reacti ve 09/09/2014 8:58 PM CDT [facility] Blood specimen (specimen) BLOOD SPECIMEN / Unknown Venipuncture / Unknown 09/09/2014 3:36 PM CDT 09/09/2014 3:36 PM CDT Narrative [facility] - 09/09/2014 8:58 PM CDT HIV-1 p24 and HIV-1/HIV-2 Ab not detected us Breana Jones MD SEND OUTS Piper l Result [facility] [address] [place] [address], from Last 3 Months or Most Recently Relevant to Health Maintenance Insurance [facility] FED EMP [facility] FED EMP [employer] DEPT [id number] [facility] [id number] Care Teams Change Management Lead Relationship Specialty Start Date End Date Pcp, No . PCP - General 02/14/18 Pcp, No . 02/14/18
--- OUTSIDE RECORDS SUMMARY | 2024-11-11 01:11 | XMS_ITS | Patient Health Record ---
Author Organization [facility], [facility] Address [address] [place] [address] Care Team Providers Care Director Of Pulmonary Unit Name Role Phone Provider, Outside Primary Care Provider [phone] Reason For Referral No Information Medications Medication SIG (Take, Route, Frequency, Duration) Notes Start Date End Date Status Iron 240 (27 Fe) MG Orally Active Norethindrone Acet-Ethinyl Est 1-20 MG-MCG 1 tablet Orally Once a day for 30 day(s) 01/05/2017 Active metFORMIN HCl 500 MG 1 tablet with meals Orally once daily at dinner Active Ibuprofen 200 MG 1 tablet with food o r milk as needed Orally every 6 hrs Active Prenat Qxm-XmIbbh-Qqihswreh-FA 29-0.6-0.4 MG 1 tablet Orally Once a day for 30 day(s) 01/31/2017 Active Immunizations Vaccine Route Administration Date Status Comme nts .VERIFIED IMMUNIZATIONS Unknown 12/01/2012 Administered DTaP (0-6yr) INFANRIX Unknown 12/17/2004 Administered DTaP (0-6yr) INFANRIX Unknown 02/24/2005 Administered DTaP (0-6yr) INFANRIX Unknown 04/22/2005 Administered DTaP (0-6yr) INFANRIX Unknown 06/24/2005 Administered Influenza Unknown 12/17/2004 Administered IPV (Polio) Unknown 12/17/2004 Administered IPV (Polio) Unknown 02/24/2005 Administered IPV (Polio) Unknown 04/22/2005 Administered IPV (Polio) Unknown 06/24/2005 Administered Meningococcal (Menactra) (11yr - 55yr) MCV4 Unknown 12/08/2007 Administered Meningococcal (Menactra) (11yr - 55yr) MCV4 Unknown 12/01/2012 Administered Meningococcal (Menactra) (11yr - 55yr) MCV4 IM Intramuscular 12/01/2012 Administered MMR Unknown 12/17/2004 Administered MMR Unknown 04/22/2005 Administered Pneumococcal ([id number]) PPSV23 (2yr+) Unknown 12/17/2004 Administered Rotavirus Monovalent (up to 24 weeks) Rotarix Unknown 12/17/2004 Administered Tdap (Adacel or Boostrix) Unknown 12/23/2010 Administer ed Varicella IRAM (Varivax) (Chicken Pox) Unknown 12/17/2004 Administered Varicella IRAM (Varivax) (Chicken Pox) Unknown 10/17/2006 Administered zzHepA Unknown 06/24/2005 Administered zzHepA Unknown 10/17/2006 Administered zzHepB Unknown 12/17/2004 Administered zzHepB Unknown 02/24/2005 Administered zzHepB Unknown 04/22/2005 Administered Social History Tobacco Use: Social History Observation Description Date Details (start date - stop date) Never Smoker NA - NA Smoking Status: Question Answer Notes Patient is a never smoker Problems Problem Type SNOMED Code ICD Code Onset Dates Problem Status W/U Status Risk Notes Problem 83356527 Allergic rhinitis (J30.9) Active confirmed Problem 46592388 PCOS (polycystic ovarian syndrome) (E28.2) Active confirmed Problem 168257693 Vocal cord dysfunction (J38.3) Active confirmed Problem 93759879 Eustachian tube dysfunction (H69.80) Active confirmed Problem 99238676 Short of breath on exertion (R06.02) Active confirmed Problem Iron deficiency anemia secondary to inadequate dietary iron intake (952724706) Iron deficiency anemia secondary to inadequate dietary iron intake (D50.8) Active confirmed Plan Of Treatment No Information Insurance Providers Payer Name Payer Address Payer Phone Subscriber Number Group Number Insured Name Patient Relationship to Insured Coverage Start Date Coverage End Date BCBS BETTIE FP PC Blue PPO Federal Empl [address] Federal Employee Program [place], [place] [id number] Child - Insured does not have Financial Responsibility (includes legally adopted child) 2 Medical (General) History Medical History History ICD Code plantar warts polydipsia pes planus chronic ankle pain allergic asthma Unspecified ovarian cyst, right side N83 .201 Unspecified ovarian cyst, left side N83. 202 Surgical History Surgery Date(Month/Year) wisdom teeth removed, x 4 polyp removed from uterus 06/2016
--- OUTSIDE RECORDS SUMMARY | 2024-11-11 01:11 | XMS_ITS | Clinical Summary ---
Author Organization [facility] Address [address] [place] [address] Care Team Providers Care Information Technology Coordinator Name Role Phone Elsewhere, Pcp Primary Care Provider Unavailabl e Source Comments Patient records contain information from all sites at [facility]. For routine questions regarding patient records, call [phone] during business hours, M-F 8:00 AM - 5:00 PM Central Time. Record requests for emergency care only can be directed to [phone] at any time.[facility] Allergies No known active allergies Medications calcium carbonate-vitam in D3 1,250 mg (500 mg calcium)-5 mcg (200 Unit) per tablet Take 1 tablet by mouth daily with breakfast. Active clindamycin (Cleocin) 2 % vaginal cream Insert 1 Application into the vagina at bedtime. 40 g 5 Active Active Problems Problem Noted Date Diagnosed Date Polycystic Ovary Syndrome 09/04/2021 Depression 09/04/2021 Asthma Mild Intermittent 12/10/2019 Dyslipidemia 06/01/2018 Metabolic Syndrome 12/09/2016 PreDiabetes 06/02/2016 Immunizations Immunization Administration Dates Next Due Td (Adult), adsorbed 2013 Tdap 06/03/2020 influenza vaccine quad (FLUZ ONE/FLUARIX) (6 months and older)(PF) 03/04/2020 Family History Relation Name Status Comments Father Alive Mother Alive Social History Tobacco Use Types Packs/Day Years Used Date Smoking Tobacco: Never Smokeless Tobacco: Never Tobacco Cessation:Counseling Given: Not Answered Alcohol Use Standard Drinks/Week Comments Not Currently 0 (1 standard drink = 0.6 oz pur e alcohol) [facility] Utilities Answer Date Recorded In the past 12 months has th e electric, gas, oil, or water company threatened to shut off services in your home? Yes 06/18/2024 Humiliation, Afraid, Rape, and Kick questionnair e Answer Date Recorded Within the last year, have y ou been afraid of your partner or ex-partner? No 11/26/2021 Within the last year, have y ou been humiliated or emotionally abused in other ways by your partner or ex-partner? Patient declined 11/26/2021 Within the last year, have y ou been kicked, hit, slapped, or otherwise physically hurt by your partner or ex-partner? Patient declined 11/26/2021 Within the last year, have y ou been raped or forced to have any kind of sexual activity by your partner or ex-partner? Patient declined 11/26/2021 PRAPARE - Transportation Answer Date Re corded In the past 12 months, has l ack of transportation kept you from medical appointments or from getting medications? No 06/18/2024 In the past 12 months, has l ack of transportation kept you from meetings, work, or from getting things needed for daily living? Patient declined 06/18/2024 Depression Answer Date Recor ded PHQ-9 Total Score (max 27) 2 09/04 Education Answer Date Recorded What is the highest level of school you have completed or the highest degree you have received? Some college, no degree 11/26/2021 Comments No Sex and Gender Information Value Date Recorded Sex Assigned at Female 11/26/2021 12:00 PM CDT Legal Sex Female 8:54 PM PRESS SERVICE READER Gender Identity Female 05/14/2021 9:07 PM PRESS SERVICE READER Sexual Orientation Not on file Last Filed Vital Signs Vital Sign Reading Time Taken Comments Blood Pressure 110/72 06/19/2024 9:02 AM PRESS SERVICE READER Pulse 62 06/19/2024 9:02 AM PRESS SERVICE READER Temperature 36.8 C (98.3 F) 06/19/2024 9:02 AM PRESS SERVICE READER Respiratory Rate 18 05/01/2024 9:54 PM PRESS SERVICE READER Oxygen Saturation 97% 06/19/2024 9:02 AM PRESS SERVICE READER Inhaled Oxygen Concentration - - Weight 107 kg (235 lb) 06/19/2024 9:02 AM PRESS SERVICE READER Height 159 cm (5' 2.6) 04/07/2023 2:23 PM PRESS SERVICE READER Body Mass Index 42.16 04/07/2023 2:23 PM PRESS SERVICE READER Plan of Treatment Health Maintenance Due Date Last Done Comments Lipid (Cholesterol) Screening 1995 Hepatitis B Vaccines (1 of 3 - 19+ 3-dose series) 2014 Pneumococcal vaccine (0-49 years) (1 of 2 - PCV) 2014 Asthma Action Plan 12/10/2019 Fasting Glucose for Diabetes Screening 09/04/2022 09/04/2021, 12/25/2019 COVID-19 Vaccine (1 - 2023-2 5 season) 2024 Depression Screening (Annual PHQ-2) 05/09/2024 Influenza Vaccine (#1) 2025 03/04/2020 Asthma Control Test Questionnaire 03/09/2025 03/09/2024 Asthma Management/Exacerbation Questionnaire (AMQ/AEQ) 03/09/2025 03/09/2024 Cervical/Vaginal Cancer Screening 06/19/2027 06/19/2024, 09/04/2021 DTaP,Tdap,and Td Vaccines (4 - Td or Tdap) 02/20/2032 02/19/2022, 06/03/2020, 2013 Chlamydia and Gonorrhea Screening Discontinued 03/09/2024, 04/07/2023, 09/04/2021 HIV Screening Completed 03/09/2024, 04/07/2023, 09/04/2021 HPV Vaccines Aged Out No longer eligi ble based on patient's age to complete this topic IPV Vaccines Aged Out No longer eligi ble based on patient's age to complete this topic Procedures Procedure Name Priority Date/Time Associated Diagnosis Comments THINPREP SCREEN HPV REFLEX Routine 06/19/2024 10:18 AM PRESS SERVICE READER Pap Smear Examination HIV-1/-2 AG AND AB SCREEN, PLASMA Routine 03/09/2024 8:56 AM CDT Screening For Venereal Disease CHLAMYDIA/GONORRHOE AE AMPLIFIED RNA Routine 03/09/2024 8:48 AM CDT Screening For Venereal Disease HEMOGLOBIN A1C, B Routine 09/04/2021 12: 19 PM CDT Examination Normal First Trimester (HCC) from Last 3 Months or Most Recently Relevant to Health Maintenance Results * ThinPrep Screen HPV Reflex (06/19/2024 10:18 AM PRESS SERVICE READER) 06/22/2024 12:47 PM PRESS SERVICE READER [facility] Report electronically signed by MELLISA Rodrgiuez(ASCP) I verify that I have examined all relevant slides/materials for the specimen(s) and rendered or confirmed the diagnosis. 06/22/2024 12:47 PM PRESS SERVICE READER [facility] Gross Description Received specimen in a ThinPrep vial. 06/22/2024 12:47 PM PRESS SERVICE READER [facility] Pap Test Source Cervical/Endocervi steve 06/22/2024 12:47 PM PRESS SERVICE READER [facility] Hormone Therapy/Contracep tives None/Not known 06/22/2024 12:47 PM PRESS SERVICE READER [facility] Interpretation Cervical/Endocervi steve (ThinPrep): Satisfactory for Evaluation Endocervical/trans formation zone components absent Negative for Intraepithelial Lesion or Malignancy Additional cytologic finding: Shift in tru suggestive of bacterial vaginosis 06/22/2024 12:47 PM PRESS SERVICE READER [facility] Thin Prep Vial (Cervix/Endocerv ix/Vagina) 06/19/2024 10:18 AM PRESS SERVICE READER 06/20/2024 7:03 AM PRESS SERVICE READER Melisa Card TEST DEPARTMENT HELPER, C.N.P. LAB PAP PATHDX OR DERABLES Final Result [facility] [address] [place] [address], [facility] [address] [address] * HIV-1/-2 Ag and Ab Screen, Plasma (03/09/2024 8:56 AM CDT) HIV Ag/Ab Screen, P Negative Negative 03/09/2024 4:38 PM CDT [facility] Comment: Negative result does not rule out HIV infection. If exposure to HIV infection occurred <14 days ago, contact the laboratory to request addition of HIV-1/HIV-2 RNA detection, Plasma (HIP12). HIV-1 p24 Ag Screen, P Negative Negative 03/09/2024 4:38 PM CDT [facility] Comment: Negative result does not rule out HIV infection. If exposure to HIV infection occurred <14 days ago, contact the laboratory to request addition of HIV-1/HIV-2 RNA detection, Plasma (HIP12). HIV-1 Ab Screen, P Negative Negative 03/09/2024 4:38 PM CDT [facility] Comment: Negative result does not rule out HIV infection. If exposure to HIV infection occurred <14 days ago, contact the laboratory to request addition of HIV-1/HIV-2 RNA detection, Plasma (HIP12). HIV-2 Ab Screen, P Negative Negative 03/09/2024 4:38 PM CDT [facility] Comment: Negative result does not rule out HIV infection. If exposure to HIV infection occurred <14 days ago, contact the laboratory to request addition of HIV-1/HIV-2 RNA detection, Plasma (HIP12). Blood (Blood, Venous) 03/09/2024 8:56 AM CDT 03/09/2024 3:13 PM CDT us Karlie Krishna APRN, C.N.P. LAB MICROBIOLOGY - BL OOD ORDERABLES Final Result [facility] [address] [place] [id number], [facility] [place] [address] [place] [address] * Chlamydia / Gonorrhoeae Amplified RNA (03/09/2024 8:48 AM CDT) Source Urine, Vagina 03/10/2024 12:02 AM CDT [facility] Chlamydia trachomatis amplified RNA Negative Negative 03/10/2024 12:02 AM CDT [facility] Source Urine, Vagina 03/10/2024 12:02 AM CDT [facility] Neisseria gonorrhoeae amplified RNA Negative Negative 03/10/2024 12:02 AM CDT [facility] Urine (Vagina) 03/09/2024 8: 48 AM CDT 03/09/2024 2:22 PM CDT us Karlie Krishna APRN, C.N.P. LAB MICROBIOLOGY - GE NERAL ORDERABLES Final Result [facility] [address] [place] [address], [place] [facility] [address] [facility] [address] [place] [address] * Hemoglobin A1c (09/04/2021 12:19 PM CDT) Hemoglobin A1c, B 5.2 4.2 - 5.6 % 09/04/2021 1:20 PM CDT [facility]G Blood (Blood, Venous) 09/04/2021 12:19 PM CDT 09/04/2021 12:47 PM CDT us Belinda Crockett APRN, C.N.P., M.S.N. LAB BLOOD AD D-ON Final Result Performing Organization Address City/[facility]/ZIP Co de Phone Number [facility] [address] [place] [address], [facility] NPRG [facility] [address] [place] [address] from Last 3 Months or Most Recently Relevant to Health Maintenance Insurance [employer] Care Teams Information Technology Coordinator Relationship Specialty Start Date End Date Elsewhere, Pcp PCP - General 03/06/20
--- OUTSIDE RECORDS SUMMARY | 2024-11-11 01:11 | XMS_ITS | Clinical Summary ---
Author Organization [facility] Address [address] [place] [address] Care Team Providers Care Set Up Mechanic Heading Machines Name Role Phone Ilia Nila Burch NP Primary Care Provider [phone] Allergies No known active allergies Medications ibuprofen (ADVIL/MOTRIN) 600 MG tabletIndications: S/P dilation and curettage Take 1 tablet (600 mg) by mouth every 6 hours as needed for pain (mild) 30 tablet 7 Active norethindrone-ethi nyl estradiol (ORTHO-NOVUM 1-35 TAB,NORTREL 1-35 TAB) 1-35 MG-MCG per tabletIndications: Excessive bleeding in premenopausal period Take 1 tablet by mouth daily 84 tablet 3 7 Active Active Problems Problem Noted Date Diagnosed Date Metabolic syndrome X 12/09/2016 Excessive bleeding in premenopausal period 12/09 Iron deficiency anemia due to chronic blood loss 12/09/2016 Family History Relation Status Comments Brother 1 Alive Brother 2 Alive Father Alive Maternal Grandfather Maternal Grandmother Alive Mother Alive Paternal Grandfather Alive Paternal Grandmother Alive Sister Alive Social History Tobacco Use Types Packs/Day Years Used Date Smoking Tobacco: Never Smokeless Tobacco: Never Alcohol Use Standard Drinks/Week Comments Yes 0 (1 standard drink = 0.6 oz pur e alcohol) RARE PHQ-2 Answer Date Recorded PHQ-2 Score 1 05/17/2018 Comments Unknown Sex and Gender Information Value Date Recorded Sex Assigned at Not on file Legal Sex Female 3:34 PM CAP LINING MACHINE OPERATOR Gender Identity Not on file Sexual Orientation Not on file Last Filed Vital Signs Vital Sign Reading Time Taken Comments Blood Pressure 117/63 01/03/2017 2:30 PM CDT Pulse 66 01/03/2017 2:30 PM CDT Temperature 36.8 C (98.3 F) 01/03/2017 2:30 PM CDT Respiratory Rate 12 07/06/2016 9:30 AM CAP LINING MACHINE OPERATOR Oxygen Saturation 98% 01/03/2017 2:30 PM CDT Inhaled Oxygen Concentration - - Weight 93 kg (205 lb) 01/03/2017 2:30 PM CDT Height 157.5 cm (5' 2) 01/03/2017 2:30 PM CDT Body Mass Index 37.49 01/03/2017 2:30 PM CDT Plan of Treatment Not on file Insurance [facility] [employer] Care Teams Set Up Mechanic Heading Machines Relationship Specialty Start Date End Date Nila Morillo NP [facility] [address] [place] [address] PCP - General 12/06/17
--- OUTSIDE RECORDS SUMMARY | 2024-11-11 01:11 | XMS_ITS | Clinical Summary ---
Author Organization [facility] Address [address] [place] [address] Care Team Providers Care Third Cook Name Role Phone Unavailable Primary Care Provider Unavailabl e Social History Tobacco Use Types Packs/Day Years Used Date Smoking Tobacco: Never Assessed Comments Unknown Sex and Gender Information Value Date Recorded Sex Assigned at Not on file Legal Sex Female 1:37 AM PST Gender Identity Not on file Sexual Orientation Not on file Plan of Treatment Not on file
--- OUTSIDE RECORDS SUMMARY | 2024-11-11 01:11 | XMS_ITS | Continuity of Care Document ---
Author Organization [place] - [facility] Address [address] [place] [address] Assessment Encounter Date Assessment Date Assessment LastModified by Organization Details LastModified Time 11/05/2024 11/05/2024 ASSESSMENT: Patient is a good candidate for conservative care and the prognosis is for a favorable outcome that achieves the patients' goals. We discussed etiology, activity modifications, home care, and other treatment options. Initially, it is recommended that the patient receive in-office treatment 1 times per week for 8 weeks at which time a re-evaluation will be performed to determine an appropriate change in plan. Initially, treatment will focus on joint manipulation to restore range of motion and reduce pain. We will slowly progress to therapeutic exercises and activities to improve function, strength, and stability may also be used as warranted. If the patient is not responding as expected, more invasive procedures will be discussed along with a referral. All considerations above were discussed with the patient and questions answered to satisfaction. If the patient should have any additional questions, or should the condition evolve or worsen, the patient should not hesitate to contact our office. [email or web address] Not available 11/06/2024 18:08:32 Plan of Treatment Reminders Order Date Submit Date Provider Last Modified By Organization Details Last Modified Time Details Appointments None record ed. Lab None record ed. Referral None record ed. Procedures None record ed. Surgeries None record ed. Imaging None record ed. Medication Orders None record ed. Patient TargetsNo targets recorded. Patient InstructionsNo instructions recorded. Reason for Referral None Reported. Problems Name Problem SNOMED Code Status Onset Date Resolution Date Notes Provider Name and Address Organization Details Recorded Time Thoracic segmental dysfunction 771458498 Active 2024 Joshua Cowart [place] [address], [place], [address], [place] [facility] 18:08:33 Neck pain 00276787 Active 2024 [place] [address], [place] [facility] [place], [address], [facility] - [facility] 18:08:33 Lumbar segmental dysfunction 692327954 Active 2024 [facility] [place] [address], [place] [facility] [place], [address], [facility] - [facility] 18:08:33 Lesion of lumbar spine 763979667 Active 2024 [facility] [place] [address], [place] [facility] [place], [address], [facility] - [facility] 18:08:33 Cervical segmental dysfunction 557556272 Active 2024 [facility] [place] [address], [place], [address], [facility] - [facility] 18:08:33 Problem Notes None recorded. Procedures Surgical History Date Name Laterality Status Provider Name and Address Organization Details Recorded Time 5 [address]4511: Spinal manipulation , 3 to 4 regions completed [place], [place] [address], [place], [address], [facility] - [facility] 11/06/2024 18:09:32 Imaging Results None recorded. Procedure Notes None recorded. Medical Equipment None Reported. Medications Name Sig Start Date Stop Date Status Note LastModified by Organization Details LastModified Time prednisone 20 mg tablet TAKE TWO TABLETS BY MOUTH EVERY DAY WITH FOOD OR MILK. active Not Available Not Available No t Available clindamycin 2 % vaginal cream INSERT 1 APPLICATION VAGINALLY AT BEDTIME active Not Available Not Available N ot Available Vitals None Recorded Social History None recorded. Functional Status None recorded. Mental Status None recorded. Family History Nothing Reported. Medical History No medical history recorded. Gynecological HistoryNo gynecological history recorded. Obstetrics History GPAL:G 0 P 0 0 0 0 Past Encounters Encounter ID Performer Location Encounter Start Date Encounter Closed Date Diagnosis/Indication Diagnosis SNOMED-CT Code Diagnosis ICD10 Code Diagnosis Note [id number] Joshua Cowart DC [facility] [address] [place] [address] 11/05/2024 18:41:13 11/06/2024 18:16:22 Lesion of lumbar spine 245113114 M99.01 Neck pain 58884639 M54.2 Thoracic s egmental dysfunction 140648726 M99.02 Lumbar seg mental dysfunction 774078397 M99.03 Cervical s egmental dysfunction 399431322 M99.01 Health Concerns Section Related Observation LastModified by Organization Detai ls LastModified Time None Recorded Concern Status LastModified by Organization Details LastModified Time None Recorded Payers Encounter Date Sequence Insurance Name Policy Number Policy Serra Covered Member ID Serra Member ID Guarantor Name 11/05/2024 1 [employer] - INDIVIDUAL AND FAMILY (HMO) [id number] 1 Sabine Oquendo [id number] Sabine Rehman Notes Date Note Type Note Provider Name and Address Organization Details Recorded Time 11/05/2024 text/html HPI - Cervical SpineReported bypatient.Location: left Quality:aching Severity:moderate Duration:2 weeks Timing:gradual Alleviating Factors:ice Aggravating Factors:sitting Associated Symptoms:no numbness/tingling Joshua Cowart DC [address], [place], [address], [facility] - [facility] 11/06/2024 18:09:56 OBGyn Episode No OBEpisode recorded.
--- OUTSIDE RECORDS SUMMARY | 2024-11-11 01:11 | XMS_ITS | Encounter Summary ---
Author Organization [facility] Health Address [address] [place] [address] Care Team Providers Care Lead Sprinkler Name Role Phone Unavailable Primary Care Provider Unavailabl e Prior Encounters Date Type Department Care Team Description 05/28/2019 [facility]verted [facility] [address] [place] [id number] <No scans attached> 05/28/2019 Converted 13x [facility] [address] [place] [address] <No scans attached> Plan of Treatment Not on file Procedures Procedure Name Priority Date/Time Associated Diagnosis Comments PERIODIC ORAL EVALUATION - ESTABLISHED PATIENT Routine 04/22/2017 2:00 AM SENIOR DATABASE ENGINEER ORAL HYGIENE INSTRUCTIONS Routine 2016 2:00 AM CDT TOPICAL APPLICATION OF FLUORIDE VARNISH Routine 01/13/2017 2:00 AM CDT PROPHYLAXIS - ADULT Routine 01/13/2017 2 :00 AM CDT PANORAMIC RADIOGRAPHIC IMAGE Routine 01/13/2017 2:00 AM CDT INTRAORAL - COMPREHENSIVE SERIES OF RADIOGRAPHIC IMAGES Routine 01/13/2017 2:00 AM CDT INTRAORAL PHOTO Routine 01/13/2017 2:00 AM CDT INTRAORAL PHOTO Routine 01/13/2017 2:00 AM CDT INTRAORAL PHOTO Routine 01/13/2017 2:00 AM CDT INTRAORAL PHOTO Routine 01/13/2017 2:00 AM CDT Visit Diagnoses Not on file
--- OUTSIDE RECORDS SUMMARY | 2024-11-11 01:11 | XMS_ITS | Data Portability ---
Author Organization [place] [facility] [employer] [facility] Address [address] [place] [address] Assessment Encounter Date Assessment Date Assessment LastModified [...] Organization Details Recorded Time Thoracic segmental dysfunction 014948986 Active 2024 Joshua Cowart DC [address], [place], [address], [place] [facility] 18:08:33 Neck pain 45997623 Active 2024 [place], [place] [address], [place], [address], [facility] 18:08:33 Lumbar segmental dysfunction 486826915 Active 2024 [place], [place] [address], [place], [address], [facility] [place] [facility] 18:08:33 Lesion of lumbar spine 257757027 Active 2024 [facility] [place], [place] [address], [place], [address], [facility] 18:08:33 Cervical segmental dysfunction 996281934 Active 2024 [facility] [place], [place] [address], [place], [address], [facility] 18:08:33 Problem Notes None recorded. Procedures Surgical History Date Name Laterality Status Provider Name and Address Organization Details Recorded Time 5 [address]0311: Spinal manipulation , 3 to 4 regions completed [facility] [place] [address], [place], [address], [facility] 11/06/2024 18:09:32 Imaging Results None recorded. Procedure [...] SNOMED-CT Code Diagnosis ICD10 Code Diagnosis Note [id number] Joshua Edenilson Cowart DC [facility] [address] [facility] [place] [address] 11/05/2024 18:41:13 11/06/2024 18:16:22 Lesion of lumbar spine 892785577 M99.01 Neck pain 81225066 M54.2 Thoracic s egmental dysfunction 558777802 M99.02 Lumbar seg mental dysfunction 307078884 M99.03 Cervical s egmental dysfunction 179475125 M99.01 Health Concerns Section Related Observation LastModified by Organization Detai ls LastModified Time None Recorded Concern Status LastModified by Organization Details LastModified Time None Recorded Advance Directives Directive None Recorded Payers Insurance Date Sequence Insurance Name Policy Number Policy Serra Covered Member ID Serra Member ID Guarantor Name 11/07/2024 [facility]+ [id number] [employer] 11/06/2024 1 [facility] - INDIVIDUAL AND FAMILY (HMO) [id number] 1 [employer] [id number] [employer] Notes Date Note Type Note Provider Name and Address Organization Details Recorded Time 11/05/2024 text/html HPI - Cervical SpineReported bypatient.Location: left Quality:aching Severity:moderate Duration:2 weeks Timing:gradual Alleviating Factors:ice Aggravating Factors:sitting Associated Symptoms:no numbness/tingling Joshua Cowart DC [address], [place], [address], [facility] [place] [facility] 11/06/2024 18:09:56 OBGyn Episode No OBEpisode recorded.
[2024-11-11 01:22] VITALS: BP 122/82; PULSE 84; RESP 16; TEMP 36.4; O2SAT 97; BMI 43.7
[2024-11-11] MEDS: ACETAMINOPHEN 500 MG TABLET 1000 MG PO (02:08)
[2024-11-11] MEDS: KETOROLAC 10 MG TABLET PO (02:10)
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
== END 2024-11-11 02:31 | disposition home or self-care (01) ==
PROVIDERS: Emergency Provider Family Medicine
DX: H60.91 Unspecified otitis externa, right ear (principal)
CPT/HCPCS: 99283; A9270